=== PATIENT | female | born 1965 | race Caucasian/White ===

== ENCOUNTER 2024-06-15 16:52 | Emergency (ER) | payer MEDICAID, SELFPAY ==
--- NOTE | ~2024-06-15 | XR_ITS ---
EXAMINATION: XR HIP, RIGHT, WITH AP PELVIS CLINICAL INFORMATION: Right hip pain. COMPARISON: None available. TECHNIQUE: AP and frog-leg lateral views of the right hip are submitted, together with a frontal view of the pelvis. A benign, calcified right buttock granuloma is incidentally noted. FINDINGS: No fracture. Alignment is anatomic. Hip joint space is maintained. Soft tissues are unremarkable. XR/XR hip RT w PEL1V IMPRESSION: Normal right hip. Electronically signed by: Narayan Paredes MD 06/15/2024 07:36 PM EST
--- NOTE | ~2024-06-15 | XR_ITS ---
EXAMINATION: XR LUMBOSACRAL SPINE CLINICAL INFORMATION: Lower back pain. COMPARISON: None available. TECHNIQUE: AP and lateral views of the lumbar spine and lateral view of the lumbosacral junction. FINDINGS: Vertebral body heights and alignment are normal. There is a mild upper lumbar dextroscoliosis. There is marked disc space narrowing at L5-S1. The remaining disc spaces are relatively well-maintained. No acute fracture or spondylolisthesis is seen. There is multi-level endplate arthropathy, most pronounced in the lower thoracic spine and at L5-S1. The posterior elements are intact. There is facet arthropathy at L5-S1. The paravertebral soft tissues are unremarkable. There are upper abdominal surgical clips. XR/XR lumbar spine 2-3V IMPRESSION: 1. There is marked degenerative disc disease L5-S1, with facet arthropathy. 2. No acute fracture or spondylolisthesis is seen. 3. There is multi-level thoracolumbar endplate arthropathy. Electronically signed by: Narayan Paredes MD 06/15/2024 07:41 PM EST
[2024-06-15 17:13] VITALS: PULSE 98; RESP 16; TEMP 36.8; O2SAT 96; BMI 41.2
--- NOTE | 2024-06-15 17:30 | ED_ITS ---
HPI - General Adult General Chief complaint: Extremity Injury, Lower Stated complaint: R hip pain/R knee pain Time Seen by Provider: 06/15/24 21:07 Source: patient Mode of arrival: ambulatory Limitations: no limitations History of Present Illness ED Provider: Dr. Sherine Watts HPI narrative: Patient comes to the emergency room complaining of lower back pain radiating towards the right lower extremity. Patient states it has been going on for 3 days since he got very painful, worse with any movement or trying to walk on it. Patient states sometimes it feels that the right knee white. Patient denies any urinary retention. Patient states that she has been going to a chiropractor for both lower back pain and knee pain. Patient states that she believes that the pain may have gotten worse after her last session. Patient states that she has been diagnosed with disc herniations in the past. Related Data Previous Rx's ?Medication ?Instructions ?Recorded ketorolac 10 mg tablet 10 mg PO TID PRN pain #12 tabs 06/15/24 walker #1 ea 06/15/24 Allergies Allergy/AdvReac Type Severity Reaction Status Date / Time No Known Allergies Allergy Verified 06/15/24 17:29 Review of Systems Review of Systems: Constitutional : No Weight loss, No Fever, No Chills, No Night Sweats, No Fatigue, No Malaise ENT/Mouth : No Hearing loss, No Ear Pain, No Nasal Congestion, No Sinus Pain, No Hoarseness, No sore throat, No Rhinorrhea, No Swallowing Difficulty Eyes: No Eye Pain, No Swelling, No Redness, No Foreign Body, No Discharge, No Vision Changes Cardiovascular : No Chest Pain, No SOB, No Dyspnea on Exertion, No Orthopnea, No Edema, No Palpitations Respiratory : No Cough, No Sputum, No Wheezing, No Smoke Exposure, No Dyspnea Gastrointestinal : No Nausea, No Vomiting, No Diarrhea, No Constipation, No ab dominal Pain, No Hematochezia, No Melena Genitourinary : no irregular bleeding, No Dysuria, No Urinary Frequency, No Hematuria, No Urinary Incontinence, No Urgency, No Flank Pain, No Urinary Flow Changes, No Hesitancy Musculoskeletal : Complaining of lumbar back pain radiating towards the right lower extremity come No joint pain, No Myalgias, No Joint Swelling Skin : No Skin Lesions, No rash Neuro : No Weakness, No Numbness, No Paresthesias, No Loss of Consciousness, No Dizziness, No Headache Psych : No Anxiety/Panic, No Depression, No SI/HI/AH/VH, No Social Issues, Heme/Lymph: No Bruising, No Bleeding,No Lymphadenopathy Endocrine : No Polyuria, No Polydipsia, No Temperature Intolerance [facility] Past Medical History Medical History (Updated 06/16/24 @ 00:00 by Background Danoemi) Sciatica Radiculopathy Social History Social History Advance Directives: No Advance Directives Information Provided: No Do you have a plan to hurt others: No Plan Physical Exam ED Vital Signs: Vital Signs - 24 hr 06/15/24 17:13 06/15/24 20:16 06/15/24 22:07 Temperature 98.2 F 97.9 F 97.9 F Pulse Rate 98 81 81 Respiratory Rate 16 16 16 Blood Pressure 118/73 118/73 Pulse Oximetry 96 96 96 Oxygen Delivery Method Room Air Room Air Room Air BMI result Body Mass Index 41.2 Const Other: Appearance: Alert. Oriented X3. No acute distress. Eyes: Pupils equal, round and reactive to light. ENT: Pharynx normal. Neck: Normal inspection. Neck supple. No lymph nodes noted. No crepitus CVS: Normal heart rate and rhythm. Pulses normal. Normal S1 and S2 Respiratory: No respiratory distress. Breath sounds normal. No Wheezing. No rales Abdomen: Soft and nontender. No rigidity. No distention. Skin: Skin warm and dry. Normal skin color. Normal skin turgor. Back: No significant pain to palpation on the lumbar spine. However, she has significant pain with straight leg raise test on the right side. No pain with the left side. Normal strength in both lower extremities. However, patient does not want to bear weight on the right due to severe pain Extremities: No lower extremity edema. No Lacerations. No Rash Neuro: Oriented X 3. No motor deficit. No sensory deficit. Moving all extremities. No slurred speech. CN 2 through 12 grossly intact Psych: calm, cooperative, normal affect Course Course Course Narrative: RME: 58 yold female presents to the ED back pain raidating down right hip and knee wihtout trauma. patient has pmh of back issues. positive for lumbar spine tenderness on palaptin.l Medications Administered Discontinued Medications Generic Name Dose Route Start Last Admin Trade Name Freq PRN Reason Stop Dose Admin Dexamethasone Sodium Phosphate 4 mg 06/15/24 21:24 12 21:36 Dexamethasone Sod Phosphate 4 Mg/Ml Vial IM 06/15/24 21:25 4 mg ONCE ONE Administration Ketorolac Tromethamine 60 mg 06/15/24 21:24 06/15/24 21:36 Ketorolac Tromethamine 60 Mg/2 Ml Vial IM 06/15/24 21:25 60 mg ONCE ONE Administration Medical Decision Making Medical Decision Making [facility] Narrative: On physical exam, patient had a positive straight leg raise test. Patient does have normal strength bilaterally. Exam on the left lower extremity is completely normal. Patient likely has sciatica versus herniated discs. After talking with the patient her family, seems that patient has had issues with radiculopathy and lumbar pain in the past. On x-ray, patient has marked degenerative disc disease L5-S1 I discussed with the patient that it is likely that she will need physical therapy 1st and then she may need an MRI, both to be referred to her primary care physician which she does have at this time, I did recommend not to continue going to the chiropractor, as her pain got worse in her last session. For symptomatic treatment, patient was seeming IM Toradol and Decadron. Cauda equina is not suspected Differential Diagnosis Differential Diagnoses: The differential diagnosis associated with the presentation includes (Sciatica, herniated disc) Independent Interpretation I performed an independent interpretation of an: Plain X-Ray Radiology Impression Discussion of test interpretation with radiology: I have reviewed the ra diologist's reading. Radiologist Impression: Vertebral body heights and alignment are normal. There is a mild upper lumbar dextroscoliosis. There is marked disc space narrowing at L5-S1. The remaining disc spaces are relatively well-maintained. No acute fracture or spondylolisthesis is seen. There is multi-level endplate arthropathy, most pronounced in the lower thoracic spine and at L5-S1. The posterior elements are intact. There is facet arthropathy at L5-S1. The paravertebral soft tissues are unremarkable. There are upper abdominal surgical clips. XR/XR lumbar spine 2-3V IMPRESSION: 1. There is marked degenerative disc disease L5-S1, with facet arthropathy. 2. No acute fracture or spondylolisthesis is seen. 3. There is multi-level thoracolumbar endplate arthropathy. Discharge Plan Discharge Clinical Impression: Sciatica Patient Disposition: Home, Self-Care Instructions: Sciatica (ED) Additional Instructions: Please follow-up with your primary care physician tomorrow. If you have any worsening or new symptoms, please return to the emergency room or call 911 Prescriptions: New ketorolac 10 mg tablet 10 mg PO TID PRN (Reason: pain) Qty: 12 0RF (DME) walker Misc See Rx Instructions .Route Qty: 1 0RF Rx Instructions: As directed Interventions: ED Discharge Assessment Last Done: 06/15/24 22:07 Discharge Date/Time: 06/15/24 22:07 Print Language: Scottish
[2024-06-15 20:16] VITALS: BP 118/73; PULSE 81; RESP 16; TEMP 36.6; O2SAT 96
[2024-06-15] MEDS: Ketorolac Tromethamine 60 MG/2 ML VIAL IM (21:36)
[2024-06-15] MEDS: dexAMETHasone sod phosphate 4 MG/ML VIAL IM (21:36)
[2024-06-15 22:07] VITALS: BP 118/73; PULSE 81; RESP 16; TEMP 36.6; O2SAT 96
== END 2024-06-15 22:07 | disposition home or self-care (01) ==
PROVIDERS: Emergency Provider Emergency Medicine; PCP Physician Assistant
DX: M54.41 Lumbago with sciatica, right side (principal); M54.50 Low back pain, unspecified
CPT/HCPCS: 72100; 73502; 96372; 99283; 99284; J1100; J1885